=== PATIENT | male | born 2000 | race Caucasian/White ===

== ENCOUNTER 2024-11-15 13:05 | Emergency (ER) | payer SELFPAY ==
[2024-11-15] MEDS ORDERED: Sodium Chloride 0.9% 10 ML Syringe FLUSH PRN ×2 (13:38→13:42)
[2024-11-15 13:41] LABS: BASOPHILS ABSOLUTE AUTO 0.04 10^3/uL (0.00-0.10); BASOPHILS PERCENT AUTO 0.5 % (0.0-1.0); EOSINOPHILS ABSOLUTE AUTO 0.27 10^3/uL (0.10-0.30); EOSINOPHILS PERCENT AUTO 3.6 % (1.0-3.0); IMMATURE GRAN ABSOLUTE AUTO 0.01 10^3/uL (0.00-0.04); IMMATURE GRAN PERCENT AUTO 0.1 % (0.0-0.4); LYMPHOCYTES ABSOLUTE AUTO 1.62 10^3/uL (1.00-4.00); LYMPHOCYTES PERCENT AUTO 21.4 % (20.0-40.0); MEAN PLATELET VOLUME 10.0 fL (7.4-10.4); MONOCYTES ABSOLUTE AUTO 0.60 10^3/uL (0.10-0.80); MONOCYTES PERCENT AUTO 7.9 % (2.0-8.0); NEUTROPHILS ABSOLUTE AUTO 5.02 10^3/uL (2.50-7.00); NEUTROPHILS PERCENT AUTO 66.5 % (50.0-70.0); PLATELET COUNT,PLT 247 10^3/uL (150-400); RED BLOOD CELL COUNT 4.97 10^6/uL (4.50-6.00); RED CELL DISTRIBUTION WIDTH 12.6 % (11.5-14.5); WHITE BLOOD CELL COUNT,WBC 7.56 10^3/uL (5.00-10.00)
[2024-11-15 13:59] LABS: ALANINE AMINOTRANSFERASE,ALT 20 U/L (14-63); ASPARTATE AMNIOTRANSFERASE,AST 20 U/L (15-37); BILIRUBIN TOTAL 1.4 mg/dL (0.2-1.0); BLOOD UREA NITROGEN,BUN 22 mg/dL (7-18); CARBON DIOXIDE,CO2 30.8 mmol/L (21.0-32.0); CHLORIDE,CL 99 mmol/L (98-107); CREATININE 0.94 mg/dL (0.51-1.17); ESTIMATED GFR 115 mL/min (>=60); GLUCOSE RANDOM 104 mg/dL (70-140); POTASSIUM,K 3.8 mmol/L (3.5-5.1); PROTEIN TOTAL,TP 7.7 g/dL (6.4-8.2); SODIUM,NA 139 mmol/L (136-145)
[2024-11-15 14:04] LABS: ETHANOL BLOOD MEDICAL < 3 mg/dL (<3)
[2024-11-15 14:07] LABS: B-TYPE NATRIURETIC PEPTIDE,BNP < 5 pg/mL (0-100)
[2024-11-15 15:10] LABS: APPEARANCE,URINE CLEAR (CLEAR); GLUCOSE,URINE NEGATIVE (NEGATIVE); OCCULT BLOOD,URINE NEGATIVE (NEGATIVE)
[2024-11-15 15:17] LABS: EPITHELIAL CELLS,URINE RARE /LPF
== END 2024-11-15 16:20 | disposition home or self-care (01) ==
LOC: KA.ED 13:05
DX: R10.11 Right upper quadrant pain (principal); R42 Dizziness and giddiness; E80.6 Other disorders of bilirubin metabolism; E86.0 Dehydration; Z79.899 Other long term (current) drug therapy
CPT/HCPCS: 71045; 80053; 80307; 81001; 82947; 83690; 83880; 84484; 85025; 85379; 87428-QW; 96360; 96361; 99284-25; J7030

== ENCOUNTER 2024-12-02 13:40 | Emergency (ER) | payer SELFPAY ==
[2024-12-02] MEDS ORDERED: Sodium Chloride 0.9% 10 ML Syringe FLUSH PRN (13:46)
[2024-12-02] MEDS: Ondansetron 4 MG/2 ML SDV IVPUSH ONE ×2 (13:49→15:00)
[2024-12-02] MEDS: Ondansetron 4 MG/2 ML SDV ONE (13:53)
[2024-12-02 14:13] LABS: BASOPHILS ABSOLUTE AUTO 0.02 10^3/uL (0.00-0.10); BASOPHILS PERCENT AUTO 0.2 % (0.0-1.0); EOSINOPHILS ABSOLUTE AUTO 0.00 10^3/uL (0.10-0.30); EOSINOPHILS PERCENT AUTO 0.0 % (1.0-3.0); IMMATURE GRAN ABSOLUTE AUTO 0.02 10^3/uL (0.00-0.04); IMMATURE GRAN PERCENT AUTO 0.2 % (0.0-0.4); LYMPHOCYTES ABSOLUTE AUTO 0.88 10^3/uL (1.00-4.00); LYMPHOCYTES PERCENT AUTO 6.8 % (20.0-40.0); MEAN PLATELET VOLUME 11.1 fL (7.4-10.4); MONOCYTES ABSOLUTE AUTO 0.48 10^3/uL (0.10-0.80); MONOCYTES PERCENT AUTO 3.7 % (2.0-8.0); NEUTROPHILS ABSOLUTE AUTO 11.47 10^3/uL (2.50-7.00); NEUTROPHILS PERCENT AUTO 89.1 % (50.0-70.0); PLATELET COUNT,PLT 242 10^3/uL (150-400); RED BLOOD CELL COUNT 5.13 10^6/uL (4.50-6.00); RED CELL DISTRIBUTION WIDTH 13.2 % (11.5-14.5); WHITE BLOOD CELL COUNT,WBC 12.87 10^3/uL (5.00-10.00)
[2024-12-02 14:47] LABS: ALANINE AMINOTRANSFERASE,ALT 42 U/L (14-63); ASPARTATE AMNIOTRANSFERASE,AST 27 U/L (15-37); BILIRUBIN TOTAL 0.9 mg/dL (0.2-1.0); BLOOD UREA NITROGEN,BUN 23 mg/dL (7-18); CARBON DIOXIDE,CO2 23.0 mmol/L (21.0-32.0); CHLORIDE,CL 102 mmol/L (98-107); CREATININE 0.69 mg/dL (0.51-1.17); EST CRCL DRUG DOSING (CG) 147.09 mL/min; GLUCOSE RANDOM 104 mg/dL (70-140); POTASSIUM,K 3.8 mmol/L (3.5-5.1); PROTEIN TOTAL,TP 8.0 g/dL (6.4-8.2); SODIUM,NA 144 mmol/L (136-145)
[2024-12-02 14:48] LABS: ESTIMATED GFR 131 mL/min (>=60); ETHANOL BLOOD MEDICAL < 3 mg/dL (<3)
[2024-12-02] MEDS: Lactated Ringers 1,000 ML IV SCH (14:59)
[2024-12-02] MEDS: Ondansetron 4 MG Tab.DIS PO ONE (16:03)
== END 2024-12-02 16:11 | disposition home or self-care (01) ==
LOC: KA.ED 13:40
DX: K52.9 Noninfective gastroenteritis and colitis, unspecified (principal); Z79.899 Other long term (current) drug therapy
CPT/HCPCS: 80053; 80307; 83690; 83735; 85025; 96361; 96374; 96375; 96376; 99284; 99284-25; A9270-GY; J2405; J2765; J7030; J7120